=== PATIENT | male | born 1975 | race African-American/Black ===

== ENCOUNTER → 2017-03-05 | Outpatient (CLI) | payer OTHER ==
[2017-03-05 08:08] LABS: ABSOLUTE BASOPHILS # (AUTO) 0.1 10^3/uL (0.0-0.2); ABSOLUTE EOSINOPHILS # (AUTO) 0.2 10^3/uL (0.0-0.6); ABSOLUTE MONOCYTES (AUTO) 0.7 10^3/uL (0.1-1.4); ABSOLUTE NEUT (AUTO) 4.1 10^3/uL (1.7-8.2); BASOPHILS % (AUTO) 0.7 % (0-2); EOSINOPHILS % (AUTO) 2.6 % (0-6); HEMATOCRIT 39.8 % (37.9-51.0); HEMOGLOBIN 13.5 g/dL (13.5-17.0); HGB HCT DIFFERENCE 0.7; LYMPHOCYTES % (AUTO) 37.5 % (13-45); MEAN CORPUSCULAR HEMOGLOBIN 26.8 pg (27.0-33.4); MEAN CORPUSCULAR VOLUME 79 fl (80-97); MONOCYTES % (AUTO) 8.4 % (3-13); RED BLOOD COUNT 5.04 10^6/uL (4.35-5.55); RED CELL DISTRIBUTION WIDTH 15.7 % (11.5-14.0); SEGMENTED NEUTROPHILS % (AUTO) 50.8 % (42-78); WHITE BLOOD COUNT 8.1 10^3/uL (4.0-10.5)
[2017-03-05 08:37] LABS: ALANINE AMINOTRANSFERASE 47 U/L (21-72); ALBUMIN 4.3 g/dL (3.5-5.0); ALKALINE PHOSPHATASE 58 U/L (38-126); ANION GAP 11 (5-19); ASPARTATE AMINO TRANSFERASE 33 U/L (17-59); BILIRUBIN,DIRECT 0.4 mg/dL (0.0-0.4); BILIRUBIN,TOTAL 0.5 mg/dL (0.2-1.3); BLOOD UREA NITROGEN 16 mg/dL (7-20); CALCIUM 9.7 mg/dL (8.4-10.2); CARBON DIOXIDE 21 mmol/L (22-30); CHLORIDE 107 mmol/L (98-107); CHOLESTEROL 164.63 mg/dL (0-200); CREATININE RESULT 1.07 mg/dL (0.52-1.25); Direct HDL 30 mg/dL (>40); GLUCOSE 117 mg/dL (75-110); POTASSIUM 4.5 mmol/L (3.6-5.0); SODIUM 139.3 mmol/L (137-145); TOTAL PROTEIN 6.9 g/dL (6.3-8.2); TRIGLYCERIDES 354 mg/dL (<150)
[2017-03-05 08:50] LABS: DIRECT LDL 72 mg/dL (<100)
[2017-03-05 08:51] LABS: VLDL CHOLESTEROL 70.8 mg/dL (10-31)
== END ==
LOC: OD 07:10
PROVIDERS: ATTEND Family Medicine Geriatric Medicine
DX: I10 Essential (primary) hypertension (principal); K21.9 Gastro-esophageal reflux disease without esophagitis; K85.90 Acute pancreatitis without necrosis or infection, unspecified; Z79.899 Other long term (current) drug therapy
CPT/HCPCS: 36415; 80053; 80061; 84443; 85025

== ENCOUNTER → 2017-04-02 | Outpatient (CLI) | payer OTHER ==
--- NOTE | 2017-04-02 11:34 | RADIOLOGY REPORT (SQ) ---
EXAM DESCRIPTION: LUMBAR SPINE COMPLETE COMPLETED DATE/TIME: 04/02/2017 11:13 am REASON FOR STUDY: LOW BACK PAIN M54.5 LOW BACK PAIN COMPARISON: 02/23/2011. NUMBER OF VIEWS: Five views including obliques. TECHNIQUE: AP, lateral, oblique, and sacral radiographic images acquired of the lumbar spine. LIMITATIONS: None. FINDINGS: MINERALIZATION: Normal. SEGMENTATION: Normal. No transitional anatomy. ALIGNMENT: Normal. VERTEBRAE: Maintained height. No fracture or worrisome bone lesion. DISCS: Preserved height. No significant osteophytes or end plate irregularity. POSTERIOR ELEMENTS: Pedicles and facets are intact. No pars defect or posterior arch defects. HARDWARE: None in the spine. PARASPINAL SOFT TISSUES: Normal. PELVIS: Intact as visualized. No fractures or worrisome bone lesions. SI joints intact. OTHER: No other significant finding. IMPRESSION: NORMAL 5 VIEW LUMBAR SPINE. TECHNICAL DOCUMENTATION: JOB ID: [id number] [employer]- All Rights Reserved
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
== END ==
LOC: OD 10:19
PROVIDERS: ATTEND Family Medicine Geriatric Medicine
DX: M54.5 Low back pain (principal)
CPT/HCPCS: 72110; 72220

== ENCOUNTER → 2017-10-19 | Outpatient (CLI) | payer OTHER | LOC: OD 08:24 | PROVIDERS: ATTEND Family Medicine Geriatric Medicine | DX: Z79.899 Other long term (current) drug therapy (principal); R73.9 Hyperglycemia, unspecified | CPT/HCPCS: 36415; 82947; 82950; 83036 ==

== ENCOUNTER 2018-04-21 12:39 | Inpatient (IN) | payer OTHER ==
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
[2018-04-21] MEDS ORDERED: CEFTRIAXONE 1 GM/D5W RTU 1 GM/50 ML RTUPB IV ONE (16:06)
[2018-04-21 16:18] LABS: ABSOLUTE BASOPHILS # (AUTO) 0.1 10^3/uL (0.0-0.2); ABSOLUTE EOSINOPHILS # (AUTO) 0.5 10^3/uL (0.0-0.6); ABSOLUTE LYMPHOCYTES (AUTO) 3.1 10^3/uL (0.5-4.7); ABSOLUTE NEUT (AUTO) 5.4 10^3/uL (1.7-8.2); BASOPHILS % (AUTO) 0.6 % (0-2); EOSINOPHILS % (AUTO) 4.9 % (0-6); HEMATOCRIT 39.7 % (37.9-51.0); HEMOGLOBIN 13.4 g/dL (13.5-17.0); LYMPHOCYTES % (AUTO) 30.8 % (13-45); MEAN CORPUSCULAR HEMOGLOBIN 26.3 pg (27.0-33.4); MEAN CORPUSCULAR HGB CONC 33.6 g/dL (32.0-36.0); MEAN CORPUSCULAR VOLUME 78 fl (80-97); MONOCYTES % (AUTO) 9.6 % (3-13); PLATELET COUNT 280 10^3/uL (150-450); RED BLOOD COUNT 5.07 10^6/uL (4.35-5.55); RED CELL DISTRIBUTION WIDTH 15.5 % (11.5-14.0); SEGMENTED NEUTROPHILS % (AUTO) 54.1 % (42-78); TOTAL CELLS COUNTED % (AUTO) 100 %; WHITE BLOOD COUNT 9.9 10^3/uL (4.0-10.5)
[2018-04-21 16:42] LABS: ALANINE AMINOTRANSFERASE 40 U/L (21-72); ALKALINE PHOSPHATASE 63 U/L (38-126); ANION GAP 13 (5-19); ASPARTATE AMINO TRANSFERASE 27 U/L (17-59); BILIRUBIN,DIRECT 0.2 mg/dL (0.0-0.4); BILIRUBIN,TOTAL 0.5 mg/dL (0.2-1.3); BLOOD UREA NITROGEN 12 mg/dL (7-20); CALCIUM 9.3 mg/dL (8.4-10.2); CARBON DIOXIDE 23 mmol/L (22-30); CHLORIDE 105 mmol/L (98-107); GLUCOSE 74 mg/dL (75-110); POTASSIUM 4.2 mmol/L (3.6-5.0); SODIUM 140.8 mmol/L (137-145); TOTAL PROTEIN 6.6 g/dL (6.3-8.2)
[2018-04-21] MEDS ORDERED: MORPHINE SULFATE 10 MG/ML INJ IV ONE (17:51)
[2018-04-21] MEDS ORDERED: ONDANSETRON HCL INJ/PF 4 MG/2 ML SDV IV ONE (17:51)
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
[2018-04-21] MEDS ORDERED: VANCOMYCIN HCL INJ 1000 MG VIAL IV ONE (18:14)
--- NOTE | 2018-04-21 18:17 | Operative Report ---
Operative Report DATE OF SURGERY: 04/21/18 PREOPERATIVE DIAGNOSIS: 1. History of alcohol abuse. 2. History of smoking abuse. 3. Infection of skin, toenails and soft tissue of the right foot POSTOPERATIVE DIAGNOSIS: Same OPERATION: Excisional debridement of skin, multiple toenails and washing of right foot SURGEON: TIM MONTEJO ANESTHESIA: Other - IV pain medication TISSUE REMOVED OR ALTERED: tissue, skin and toenails COMPLICATIONS: None ESTIMATED BLOOD LOSS: Minimal INTRAOPERATIVE FINDINGS: See below PROCEDURE: Serous drainage from the distal foot, exfoliating skin around all 5 toes, and overgrown toenails Summary: Right foot washed vigorously with Betadine scrub brushes. All loose devitalized skin, and redundant toenails debrided with scissors, tenotomy. The of the nonviable skin was removed, some loosely fastened skin left behind. The foot washed again with Betadine. All debridement performed with tenotomy scissors. There is no indication for deep debridement; Dressings applied including Xeroform, 4 x 4's and Kerlix. Patient tolerated procedure well.
[2018-04-21] MEDS ORDERED: ACETAMINOPHEN 325 MG TABLET PO PRN (19:15)
[2018-04-21] MEDS ORDERED: ONDANSETRON 4 MG TAB.RAPDIS PO PRN (19:15)
[2018-04-21] MEDS ORDERED: ONDANSETRON HCL INJ/PF 4 MG/2 ML SDV IV PRN (19:15)
[2018-04-21] MEDS ORDERED: CLOTRIMAZOLE 1% CREAM 15 GM TP PRN (19:32)
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
[2018-04-21] MEDS: TRAMADOL HCL 50 MG TABLET PO PRN (21:01)
--- NOTE | 2018-04-21 22:00 | EKG REPORT ---
SEVERITY:- NORMAL ECG - SINUS RHYTHM : Confirmed by: Edelmira Taylor MD 21-Apr-2018 21:59:43
[2018-04-22] MEDS: AMPICILLIN SODIUM/SULBACTAM NA 3 GM in NORMAL SALINE 100 ML IV SCH ×5 (00:02→23:56)
[2018-04-22] MEDS: TRAMADOL HCL 50 MG TABLET PO PRN ×4 (03:51→22:40)
[2018-04-22] MEDS: LANSOPRAZOLE 30 MG TAB.RAP.DR PO SCH (06:07)
[2018-04-22 06:42] LABS: HEMATOCRIT 41.2 % (37.9-51.0); HEMOGLOBIN 13.8 g/dL (13.5-17.0); MEAN CORPUSCULAR HEMOGLOBIN 26.3 pg (27.0-33.4); MEAN CORPUSCULAR HGB CONC 33.4 g/dL (32.0-36.0); MEAN CORPUSCULAR VOLUME 79 fl (80-97); PLATELET COUNT 283 10^3/uL (150-450); RED BLOOD COUNT 5.23 10^6/uL (4.35-5.55); RED CELL DISTRIBUTION WIDTH 15.4 % (11.5-14.0); WHITE BLOOD COUNT 8.5 10^3/uL (4.0-10.5)
[2018-04-22 07:16] LABS: ANION GAP 10 (5-19); BLOOD UREA NITROGEN 14 mg/dL (7-20); CALCIUM 9.5 mg/dL (8.4-10.2); CARBON DIOXIDE 25 mmol/L (22-30); CHLORIDE 106 mmol/L (98-107); GLUCOSE 92 mg/dL (75-110); POTASSIUM 4.9 mmol/L (3.6-5.0); SODIUM 140.7 mmol/L (137-145)
--- NOTE | 2018-04-22 08:38 | PDOC PROGRESS REPORT ---
Subjective Progress Note for:: 04/22/18 Subjective:: Still complaining of right foot pain Reason For Visit: CELLULITIS RIGHT FOOT Physical Exam Vital Signs: Temp Pulse Resp BP Pulse Ox 98.1 F 72 16 144/81 H 99 04/21/18 23:47 04/21/18 23:47 04/21/18 23:47 04/21/18 23:47 04/21/18 23:47 Intake & Output 04/21/18 04/22/18 04/23/18 06:59 06:59 06:59 Intake Total 450 Balance 450 Weight 86.7 kg General appearance: PRESENT: no acute distress Extremities exam: PRESENT: other - Dressing removed; right foot exposed; minimal residual nonviable skin left; cellulitis of the toes persist with a lot of serous drainage. Persisting swelling to the foot ; Foot rewrapped. Results Laboratory Results: 04/22/18 05:52 04/22/18 05:52 04/22/18 04/22/18 05:52 05:52 WBC 8.5 RBC 5.23 Hgb 13.8 Hct 41.2 MCV 79 L MCH 26.3 L MCHC 33.4 RDW 15.4 H Plt Count 283 Sodium 140.7 Potassium 4.9 Chloride 106 Carbon Dioxide 25 Anion Gap 10 BUN 14 Creatinine 1.06 Est GFR ( Amer) > 60 Est GFR (Non-Af Amer) > 60 Glucose 92 Calcium 9.5 Impressions: Foot X-Ray 04/21/18 13:27 IMPRESSION: No acute osseous abnormality. Foreign body. Assessment & Plan - Diagnosis (1) Cellulitis of foot, right Is this a current diagnosis for this admission?: Yes Plan: Impression: Status post debridement skin and nails right foot in patient with neglected cellulitis; clinically improved but cellulitis and edema not resolved. Recommendations: 1. Continue dressing changes, intravenous antibiotics and leg elevation. 2. We will follow with you
[2018-04-22] MEDS: ENOXAPARIN SODIUM INJ 40 MG/0.4 ML DISP.SYRIN SUBCUT SCH (09:45)
[2018-04-22] MEDS: HYDROCORTISONE 1% CREAM 28.35 GM TP SCH (09:46)
--- NOTE | 2018-04-22 13:02 | PDOC PROGRESS REPORT ---
Subjective Progress Note for:: 04/22/18 Subjective:: 43-year-old male admitted with right lower extremity wound status post debridement yesterday started on IV antibiotics patient is complaining of pain scale of 4 x 10 is on, dull right now he wants to try stronger pain medication. Comfortably in the bed denies any other complaints Reason For Visit: CELLULITIS RIGHT FOOT Physical Exam Vital Signs: Temp Pulse Resp BP Pulse Ox 98.4 F 66 16 140/82 H 100 04/22/18 08:10 04/22/18 08:10 04/22/18 08:10 04/22/18 08:10 04/22/18 08:10 Intake & Output 04/21/18 04/22/18 04/23/18 06:59 06:59 06:59 Intake Total 450 100 Balance 450 100 Weight 86.7 kg General appearance: PRESENT: no acute distress Head exam: PRESENT: atraumatic, normocephalic Eye exam: PRESENT: conjunctiva pink, EOMI, PERRLA. ABSENT: scleral icterus Ear exam: PRESENT: normal external ear exam Neck exam: ABSENT: carotid bruit, JVD, lymphadenopathy, thyromegaly Respiratory exam: PRESENT: clear to auscultation jackie. ABSENT: rales, rhonchi, wheezes Cardiovascular exam: PRESENT: RRR. ABSENT: diastolic murmur, rubs, systolic murmur Pulses: PRESENT: normal carotid pulses GI/Abdominal exam: PRESENT: normal bowel sounds, soft. ABSENT: distended, guarding, mass, organolmegaly, rebound, tenderness Extremities exam: PRESENT: full ROM, other - Complaints of right foot pain 4 x 10. ABSENT: calf tenderness, clubbing, pedal edema Neurological exam: PRESENT: alert, awake, oriented to person, oriented to place , oriented to time, oriented to situation, CN II-XII grossly intact. ABSENT: motor sensory deficit Psychiatric exam: PRESENT: appropriate affect, normal mood. ABSENT: homicidal ideation, suicidal ideation Skin exam: PRESENT: other - Patient has rash on the hands and around the elbows and he is seeing these things are getting worse over a period of time he said he was never diagnosed with psoriasis before. Tinea pedis of left foot Results Laboratory Results: 04/22/18 05:52 04/22/18 05:52 04/22/18 04/22/18 05:52 05:52 WBC 8.5 RBC 5.23 Hgb 13.8 Hct 41.2 MCV 79 L MCH 26.3 L MCHC 33.4 RDW 15.4 H Plt Count 283 Sodium 140.7 Potassium 4.9 Chloride 106 Carbon Dioxide 25 Anion Gap 10 BUN 14 Creatinine 1.06 Est GFR ( Amer) > 60 Est GFR (Non-Af Amer) > 60 Glucose 92 Calcium 9.5 Impressions: Foot X-Ray 04/21/18 13:27 IMPRESSION: No acute osseous abnormality. Foreign body. Assessment & Plan - Diagnosis (1) Cellulitis of foot, right Is this a current diagnosis for this admission?: Yes Plan: 04/22/2018-patient has cellulitis of right lower extremity with erythema swelling and drainage status post debridement by Dr. Roque. Patient is on IV vancomycin and on IV Unasyn. Cultures are pending (2) GERD (gastroesophageal reflux disease) Qualifiers: Esophagitis presence: without esophagitis Qualified Code(s): K21.9 - Gastro -esophageal reflux disease without esophagitis Is this a current diagnosis for this admission?: Yes Plan: 04/22/2018-patient is not complaining of any epigastric pain or acid reflux problems he is on GI prophylaxis (3) HTN (hypertension) Qualifiers: Hypertension type: essential hypertension Qualified Code(s): I10 - Essential (primary) hypertension Is this a current diagnosis for this admission?: Yes Plan: 04/22/2018 patient vital signs are stable his blood pressure is within normal range (4) Tinea pedis Qualifiers: Laterality: bilateral Qualified Code(s): B35.3 - Tinea pedis Is this a current diagnosis for this admission?: Yes Plan: 04/22/2018 patient has tinea pedis in both feet and he is getting clotrimazole cream - Time Time Spent with patient: 15-24 minutes Medications reviewed and adjusted accordingly: Yes Anticipated discharge: Home
[2018-04-23] MEDS: LANSOPRAZOLE 30 MG TAB.RAP.DR PO SCH (05:46)
[2018-04-23] MEDS: AMPICILLIN SODIUM/SULBACTAM NA 3 GM in NORMAL SALINE 100 ML IV SCH ×3 (05:46→17:31)
[2018-04-23] MEDS: TRAMADOL HCL 50 MG TABLET PO PRN ×2 (08:37→17:31)
[2018-04-23] MEDS: BACITRACIN ZINC OINTMENT 15 GM TP SCH (10:43)
[2018-04-23] MEDS: HYDROCORTISONE 1% CREAM 28.35 GM TP SCH (10:43)
[2018-04-23] MEDS: ENOXAPARIN SODIUM INJ 40 MG/0.4 ML DISP.SYRIN SUBCUT SCH (10:43)
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
[2018-04-23] MEDS ORDERED: ONDANSETRON 4 MG TAB.RAPDIS PO PRN (13:00)
[2018-04-23] MEDS ORDERED: ONDANSETRON HCL INJ/PF 4 MG/2 ML SDV IV PRN (13:00)
--- NOTE | 2018-04-23 14:19 | PDOC PROGRESS REPORT ---
Subjective Progress Note for:: 04/23/18 Subjective:: Patient is comfortably in the bed not in distress, denies any complaints. Reason For Visit: CELLULITIS RIGHT FOOT Physical Exam Vital Signs: Temp Pulse Resp BP Pulse Ox 98.7 F 72 16 141/76 H 100 04/23/18 07:46 04/23/18 07:46 04/23/18 07:46 04/23/18 07:46 04/23/18 07:46 Intake & Output 04/22/18 04/23/18 04/24/18 06:59 06:59 06:59 Intake Total 450 2517 559 Balance 450 2517 559 Weight 86.7 kg 84.1 kg General appearance: PRESENT: no acute distress Head exam: PRESENT: atraumatic Eye exam: PRESENT: PERRLA. ABSENT: scleral icterus Neck exam: ABSENT: carotid bruit, JVD, lymphadenopathy, thyromegaly Respiratory exam: PRESENT: clear to auscultation jackie. ABSENT: rales, rhonchi, wheezes Cardiovascular exam: PRESENT: RRR. ABSENT: diastolic murmur, rubs, systolic murmur GI/Abdominal exam: PRESENT: normal bowel sounds, soft. ABSENT: distended, guarding, mass, organolmegaly, rebound, tenderness Neurological exam: PRESENT: alert, awake, oriented to person, oriented to place , oriented to time, oriented to situation, CN II-XII grossly intact. ABSENT: motor sensory deficit Psychiatric exam: PRESENT: appropriate affect, normal mood. ABSENT: homicidal ideation, suicidal ideation Results Laboratory Results: 04/22/18 05:52 04/22/18 05:52 Impressions: Foot X-Ray 04/21/18 13:27 IMPRESSION: No acute osseous abnormality. Foreign body. Assessment & Plan - Diagnosis (1) Cellulitis of foot, right Is this a current diagnosis for this admission?: Yes Plan: 04/22/2018-patient has cellulitis of right lower extremity with erythema swelling and drainage status post debridement by Dr. Roque. Patient is on IV vancomycin and on IV Unasyn. Cultures are pending 04/23/2018-she has right lower extremity cellulitis status post debridement patient is on IV Unasyn blood cultures are negative so far WBC is normal. (2) GERD (gastroesophageal reflux disease) Qualifiers: Esophagitis presence: without esophagitis Qualified Code(s): K21.9 - Gastro -esophageal reflux disease without esophagitis Is this a current diagnosis for this admission?: Yes (3) HTN (hypertension) Qualifiers: Hypertension type: essential hypertension Qualified Code(s): I10 - Essential (primary) hypertension Is this a current diagnosis for this admission?: Yes Plan: 04/22/2018 patient vital signs are stable his blood pressure is within normal range 04/23/2018 patient vital signs are stable blood pressure is 144/81 pulse rate in the 80s. (4) Tinea pedis Qualifiers: Laterality: bilateral Qualified Code(s): B35.3 - Tinea pedis Is this a current diagnosis for this admission?: Yes Plan: 04/22/2018 patient has tinea pedis in both feet and he is getting clotrimazole cream 04/23/2018-and has tinea pedis on his both toenails he is getting clotrimazole cream. - Time Time Spent with patient: Less than 15 minutes Anticipated discharge: Home
[2018-04-24] MEDS: TRAMADOL HCL 50 MG TABLET PO PRN ×2 (00:18→07:38)
[2018-04-24] MEDS: AMPICILLIN SODIUM/SULBACTAM NA 3 GM in NORMAL SALINE 100 ML IV SCH ×3 (00:18→11:54)
[2018-04-24] MEDS ORDERED: LANSOPRAZOLE 30 MG TAB.RAP.DR PO SCH (06:00)
[2018-04-24] MEDS: HYDROCORTISONE 1% CREAM 28.35 GM TP SCH (09:01)
[2018-04-24] MEDS: BACITRACIN ZINC OINTMENT 15 GM TP SCH (09:01)
[2018-04-24] MEDS: ENOXAPARIN SODIUM INJ 40 MG/0.4 ML DISP.SYRIN SUBCUT SCH (09:01)
[2018-04-24 12:45] VITALS: BP 137/78
--- NOTE | 2018-04-24 12:50 | PDOC DISCHARGE SUMMARY ---
General - Admit/Disc Date/PCP Admission Date/Primary Care Provider: 04/21/18 19:12 MICHAEL DIAZ MD Discharge Date: 04/24/18 - Discharge Diagnosis (1) Cellulitis of foot, right Is this a current diagnosis for this admission?: Yes Summary: Presented on 04/21/20 with cellulitis of right lower extremity with erythema, swelling, and drainage. On 04/22/2018, status post debridement by Dr. Roque. Started on IV vancomycin and IV Unasyn. Cultures were negative at 48 hours. WBC normal and vitals stable. Feeling well on day of discharge. Plan for discharge to home with 5 days course of Augmentin 825-125mg BID * 5 additional days. Advised to keep foot clean and dry. Should follow up at [facility] in 1 week. (2) Tinea pedis Is this a current diagnosis for this admission?: Yes Summary: On both feel bilaterally. Improved. Script given for clotrmazole cream for athlete's foot. (3) GERD (gastroesophageal reflux disease) Is this a current diagnosis for this admission?: Yes Summary: Stable at discharge. (4) HTN (hypertension) Is this a current diagnosis for this admission?: Yes Summary: BPs ranging in 130-140 systolic. Should have better BP controll, follow up with PCP/outpatient care. - Additional Information Resuscitation Status: Full Code Discharge Diet: Diabetic Discharge Activity: Activity As Tolerated Prescriptions: Amox Tr/Potassium Clavulanate [Augmentin 875-125 mg Tablet] 1 tab PO BID 5 Days #10 tablet Clotrimazole [Athletic Foot Cream] 1 applic TP DAILY #1 cream..g. Home Medications: Esomeprazole Mag Trihydrate [Nexium] 40 mg PO WSUPPER 04/22/18 Tramadol HCl [Ultram 50 mg Tablet] 50 mg PO Q6HP PRN 04/22/18 Amox Tr/Potassium Clavulanate [Augmentin 875-125 mg Tablet] 1 tab PO BID 5 Days #10 tablet 04/24/18 Clotrimazole [Athletic Foot Cream] 1 applic TP DAILY #1 cream..g. 04/24/18 History of Present Illness Patient complains of: Right foot pain and drainage. History of Present Illness: KEENA FARRIS is a 43 year old male with history of 2 months of right foot problems. Approximately 2 months ago his foot was itchy but there was no erythema. After 1 month he began to exhibit erythema. Around 2 weeks ago there is erythema with pain. Approximately 1 week ago it began to drain fluid from cracks in the skin. Admitted to [facility] for RLE cellulitis. Physical Exam Vital Signs: Temp Pulse Resp BP Pulse Ox 97.8 F 67 17 144/81 H 100 04/24/18 12:07 04/24/18 12:07 04/24/18 12:07 04/24/18 12:07 04/24/18 12:07 Intake & Output 04/23/18 04/24/18 04/25/18 06:59 06:59 06:59 Intake Total 2517 2243 100 Balance 2517 2243 100 Weight 84.1 kg 83.9 kg General appearance: PRESENT: no acute distress, cooperative, well-developed, well-nourished Mouth exam: PRESENT: moist Respiratory exam: PRESENT: unlabored Cardiovascular exam: PRESENT: +S1, +S2. ABSENT: tachycardia GI/Abdominal exam: PRESENT: soft. ABSENT: tenderness Extremities exam: PRESENT: other - Right foot dressing changed today; less erythema, decreased/little drainage. Ambulatory Musculoskeletal exam: PRESENT: ambulatory Neurological exam: PRESENT: alert, awake, CN II-XII grossly intact Psychiatric exam: PRESENT: appropriate affect Skin exam: PRESENT: dry, intact Results Laboratory Results: 04/22/18 05:52 04/22/18 05:52 Impressions: Foot X-Ray 04/21/18 13:27 IMPRESSION: No acute osseous abnormality. Foreign body. Qualifiers - * PATIENT BEING DISCHARGED WITH ANY OF THE FOLLOWING DIAGNOSIS: No Plan Time Spent: Less than 30 Minutes
== END 2018-04-24 13:20 | disposition home or self-care (01) | DRG 603 ==
LOC: ER 12:39 → EH 19:12 → 5 19:59
PROVIDERS: ADMIT Internal Medicine; ATTEND Internal Medicine
PROC: 0HDMXZZ Extraction of Right Foot Skin, External Approach (ICD-10-PCS; principal; 2018-04-21)
PROC: 0HBRXZZ Excision of Toe Nail, External Approach (ICD-10-PCS; 2018-04-21)
PROC: 0HBRXZZ Excision of Toe Nail, External Approach (ICD-10-PCS; 2018-04-21)
PROC: 0HBRXZZ Excision of Toe Nail, External Approach (ICD-10-PCS; 2018-04-21)
PROC: 0HBRXZZ Excision of Toe Nail, External Approach (ICD-10-PCS; 2018-04-21)
PROC: 0HBRXZZ Excision of Toe Nail, External Approach (ICD-10-PCS; 2018-04-21)
DX: L03.115 Cellulitis of right lower limb (principal); T69.021A Immersion foot, right foot, initial encounter; B35.3 Tinea pedis; K21.9 Gastro-esophageal reflux disease without esophagitis; I10 Essential (primary) hypertension; F17.210 Nicotine dependence, cigarettes, uncomplicated; G89.29 Other chronic pain; M54.5 Low back pain; R23.8 Other skin changes; F10.10 Alcohol abuse, uncomplicated; Z79.899 Other long term (current) drug therapy; Z90.49 Acquired absence of other specified parts of digestive tract; Z83.3 Family history of diabetes mellitus; Z82.49 Family history of ischemic heart disease and other diseases of the circulatory system; Z80.3 Family history of malignant neoplasm of breast
CPT/HCPCS: 36415; 80048; 80053; 83036; 83605; 85025; 85027; 87040; 93005; 93010; 96365; 96367; 96375; 99285; J0295; J0696; J1650; J2270; J2405; J3370; J3490

== ENCOUNTER → 2018-06-06 | Outpatient (CLI) | payer OTHER ==
[2018-06-06 08:07] LABS: ABSOLUTE BASOPHILS # (AUTO) 0.1 10^3/uL (0.0-0.2); ABSOLUTE EOSINOPHILS # (AUTO) 0.5 10^3/uL (0.0-0.6); ABSOLUTE LYMPHOCYTES (AUTO) 2.6 10^3/uL (0.5-4.7); ABSOLUTE MONOCYTES (AUTO) 0.8 10^3/uL (0.1-1.4); ABSOLUTE NEUT (AUTO) 4.6 10^3/uL (1.7-8.2); BASOPHILS % (AUTO) 0.7 % (0-2); EOSINOPHILS % (AUTO) 5.5 % (0-6); HEMOGLOBIN 15.2 g/dL (13.5-17.0); LYMPHOCYTES % (AUTO) 30.4 % (13-45); MEAN CORPUSCULAR HEMOGLOBIN 26.2 pg (27.0-33.4); MEAN CORPUSCULAR HGB CONC 33.1 g/dL (32.0-36.0); MEAN CORPUSCULAR VOLUME 79 fl (80-97); PLATELET COUNT 316 10^3/uL (150-450); RED BLOOD COUNT 5.82 10^6/uL (4.35-5.55); RED CELL DISTRIBUTION WIDTH 16.3 % (11.5-14.0); SEGMENTED NEUTROPHILS % (AUTO) 54.4 % (42-78); TOTAL CELLS COUNTED % (AUTO) 100 %; WHITE BLOOD COUNT 8.5 10^3/uL (4.0-10.5)
[2018-06-06 08:30] LABS: ANION GAP 10 (5-19); BLOOD UREA NITROGEN 12 mg/dL (7-20); CALCIUM 9.9 mg/dL (8.4-10.2); CARBON DIOXIDE 23 mmol/L (22-30); CHLORIDE 105 mmol/L (98-107); CHOLESTEROL 205.94 mg/dL (0-200); GLUCOSE 102 mg/dL (75-110); POTASSIUM 4.3 mmol/L (3.6-5.0); SODIUM 137.9 mmol/L (137-145); TRIGLYCERIDES 222 mg/dL (<150)
[2018-06-06 08:41] LABS: DIRECT LDL 120 mg/dL (<100)
[2018-06-06 08:44] LABS: VLDL CHOLESTEROL 44.4 mg/dL (10-31)
== END ==
LOC: OD 07:30
PROVIDERS: ATTEND Family Medicine Geriatric Medicine
DX: E78.1 Pure hyperglyceridemia (principal); I10 Essential (primary) hypertension; Z79.899 Other long term (current) drug therapy
CPT/HCPCS: 36415; 80048; 80061; 83036; 85025

== ENCOUNTER → 2018-10-02 | Outpatient (CLI) | payer OTHER ==
[2018-10-03 08:43] LABS: ALANINE AMINOTRANSFERASE 59 U/L (21-72); TRIGLYCERIDES 141 mg/dL (<150)
[2018-10-03 08:54] LABS: DIRECT LDL 121 mg/dL (<100)
[2018-10-06 15:36] LABS: HGB A 98.1 % (96.4-98.8); HGB A2 1.9 % (1.8-3.2); HGB SOLUBILITY RESULT Negative (Negative)
== END ==
LOC: OD 11:48
PROVIDERS: ATTEND Family Medicine Geriatric Medicine
DX: E78.2 Mixed hyperlipidemia (principal); R71.8 Other abnormality of red blood cells; Z79.899 Other long term (current) drug therapy
CPT/HCPCS: 36415; 80061; 83020; 84460

== ENCOUNTER 2018-10-09 11:02 | Emergency (ER) | payer OTHER ==
[2018-10-09 11:09] VITALS: BP 146/83
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
== END 2018-10-09 13:42 | disposition home or self-care (01) ==
LOC: ER 11:02
DX: R51 Headache (principal); R42 Dizziness and giddiness
CPT/HCPCS: 99283

== ENCOUNTER 2018-10-11 11:20 | Emergency (ER) | payer OTHER ==
[2018-10-11] MEDS ORDERED: DIAZEPAM 5 MG TABLET PO ONE (11:46)
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
--- NOTE | 2018-10-11 12:11 | RADIOLOGY REPORT (SQ) ---
EXAM DESCRIPTION: CT HEAD WITHOUT COMPLETED DATE/TIME: 10/11/2018 11:57 am REASON FOR STUDY: HEADACHE, DIZZINESS COMPARISON: None. TECHNIQUE: Axial images acquired through the brain without intravenous contrast. Images reviewed wi th bone, brain and subdural windows. Additional sagittal and coronal reconstructions were generated. Images stored on PACS. All CT scanners at this facility use dose modulation, iterative reconstruction, and/or weight based d osing when appropriate to reduce radiation dose to as low as reasonably achievable (ALARA). [facility]: Dose Right [facility]: CareDose [facility]: Dose Right [facility]: Teradose 4D [facility]: Smart Technologies RADIATION DOSE: CT Rad equipment meets quality standard of care and radiation dose reduction techniq ues were employed. CTDIvol: 53.2 mGy. DLP: 1150 mGy-cm. mGy. LIMITATIONS: None. FINDINGS: VENTRICLES: Normal size and contour. CEREBRUM: Roughly ovoid low density lesion in the right frontal lobe. This may measure up to 5 cm ma ximal dimension. There is regional low density, presumed very lesional edema. Mild mass effect on t he frontal horn of the right lateral ventricle. Just under 1 cm right to left shift. CEREBELLUM: No masses. No hemorrhage. No alteration of density. No evidence for acute infarction. EXTRAAXIAL SPACES: No fluid collections. No masses. ORBITS AND GLOBE: No intra- or extraconal masses. Normal contour of globe without masses. CALVARIUM: No fracture. PARANASAL SINUSES: No fluid or mucosal thickening. SOFT TISSUES: No mass or hematoma. OTHER: No other significant finding. IMPRESSION: 1. Low density mass in the right frontal lobe with regional edema and mass effect on the right ventri chaz, slight shift. This should be further evaluated with MRI without and with contrast. EVIDENCE OF ACUTE STROKE: NO. COMMENT: Quality ID # [id number]: Final reports with documentation of one or more dose reduction techniques (e.g., Automated exposure control, adjustment of the mA and/or kV according to patient size, use of iterative reconstruction technique) TECHNICAL DOCUMENTATION: JOB ID: [id number] [employer]- All Rights Reserved Reading location - IP/workstation name: [email or web address]
[2018-10-11 13:24] LABS: ABSOLUTE BASOPHILS # (AUTO) 0.1 10^3/uL (0.0-0.2); ABSOLUTE LYMPHOCYTES (AUTO) 1.8 10^3/uL (0.5-4.7); ABSOLUTE MONOCYTES (AUTO) 0.5 10^3/uL (0.1-1.4); ABSOLUTE NEUT (AUTO) 4.5 10^3/uL (1.7-8.2); EOSINOPHILS % (AUTO) 0.6 % (0-6); HEMATOCRIT 50.2 % (37.9-51.0); HEMOGLOBIN 16.3 g/dL (13.5-17.0); LYMPHOCYTES % (AUTO) 25.6 % (13-45); MEAN CORPUSCULAR HEMOGLOBIN 25.9 pg (27.0-33.4); MEAN CORPUSCULAR HGB CONC 32.5 g/dL (32.0-36.0); MEAN CORPUSCULAR VOLUME 80 fl (80-97); PLATELET COUNT 322 10^3/uL (150-450); RED BLOOD COUNT 6.32 10^6/uL (4.35-5.55); RED CELL DISTRIBUTION WIDTH 15.8 % (11.5-14.0); SEGMENTED NEUTROPHILS % (AUTO) 65.8 % (42-78); TOTAL CELLS COUNTED % (AUTO) 100 %; WHITE BLOOD COUNT 6.9 10^3/uL (4.0-10.5)
[2018-10-11] MEDS ORDERED: LEVETIRACETAM 1000 MG/NACL-ISO 1,000 MG/100 ML RTUPB IV ONE (13:34)
[2018-10-11 13:36] LABS: INTERNATIONAL RATION (INR) 0.91; PARTIAL THROMBOPLASTIN TIME 29.1 SEC (23.5-35.8); PROTHROMBIN TIME 12.7 SEC (11.4-15.4)
[2018-10-11 13:46] LABS: ALANINE AMINOTRANSFERASE 62 U/L (21-72); ALBUMIN 4.5 g/dL (3.5-5.0); ALKALINE PHOSPHATASE 60 U/L (38-126); ANION GAP 10 (5-19); ASPARTATE AMINO TRANSFERASE 31 U/L (17-59); BILIRUBIN,DIRECT 0.2 mg/dL (0.0-0.4); BILIRUBIN,TOTAL 0.4 mg/dL (0.2-1.3); BLOOD UREA NITROGEN 13 mg/dL (7-20); CALCIUM 10.5 mg/dL (8.4-10.2); CARBON DIOXIDE 26 mmol/L (22-30); CHLORIDE 104 mmol/L (98-107); GLUCOSE 96 mg/dL (75-110); POTASSIUM 4.6 mmol/L (3.6-5.0); SODIUM 140.3 mmol/L (137-145); TOTAL PROTEIN 7.5 g/dL (6.3-8.2)
[2018-10-11] MEDS ORDERED: ONDANSETRON HCL INJ/PF 4 MG/2 ML SDV IV ONE ×2 (14:08→17:25)
[2018-10-11] MEDS ORDERED: MORPHINE SULFATE 10 MG/ML INJ IV ONE (15:10)
[2018-10-11] MEDS ORDERED: HYDROMORPHONE HCL INJ/PF 2 MG/ML AMPULE IV ONE (17:08)
[2018-10-11 18:36] VITALS: BP 138/89
== END 2018-10-11 18:15 | disposition short-term general hospital (02) ==
LOC: ER 11:20
DX: G93.89 Other specified disorders of brain (principal); R51 Headache; R42 Dizziness and giddiness
CPT/HCPCS: 96376; 99285; 96375; 96365; 36415; 85025; 85610; 85730; 80053; 70450; J2270; J1170; J2405; J1953

== ENCOUNTER 2018-11-18 15:52 | Emergency (ER) | payer OTHER ==
[2018-11-18] MEDS ORDERED: ACETAMINOPHEN 325 MG TABLET PO ONE (16:00)
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
[2018-11-18] MEDS: NORMAL SALINE 1000 ML 1,000 ML IV PRN ×2 (16:41→20:28)
--- NOTE | 2018-11-18 16:57 | RADIOLOGY REPORT (SQ) ---
EXAM DESCRIPTION: CHEST 2 VIEWS COMPLETED DATE/TIME: 11/18/2018 4:49 pm REASON FOR STUDY: fever COMPARISON: 11/24/2014 EXAM PARAMETERS: NUMBER OF VIEWS: two views TECHNIQUE: Digital Frontal and Lateral radiographic views of the chest acquired. RADIATION DOSE: NA LIMITATIONS: none FINDINGS: LUNGS AND PLEURA: No opacities, masses or pneumothorax. No pleural effusion. MEDIASTINUM AND HILAR STRUCTURES: No masses or contour abnormalities. HEART AND VASCULAR STRUCTURES: Heart normal size. No evidence for failure. BONES: No acute findings. HARDWARE: None in the chest. OTHER: No other significant finding. IMPRESSION: NO ACUTE RADIOGRAPHIC FINDING IN THE CHEST. TECHNICAL DOCUMENTATION: JOB ID: [id number] [employer]- All Rights Reserved Reading location - IP/workstation name: [email or web address]
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
[2018-11-18 17:16] LABS: HEMATOCRIT 25.8 % (37.9-51.0); HEMOGLOBIN 8.7 g/dL (13.5-17.0); MEAN CORPUSCULAR HEMOGLOBIN 26.2 pg (27.0-33.4); MEAN CORPUSCULAR HGB CONC 33.8 g/dL (32.0-36.0); MEAN CORPUSCULAR VOLUME 78 fl (80-97); PLATELET COUNT 316 10^3/uL (150-450); RED BLOOD COUNT 3.33 10^6/uL (4.35-5.55); RED CELL DISTRIBUTION WIDTH 15.5 % (11.5-14.0); WHITE BLOOD COUNT 13.2 10^3/uL (4.0-10.5)
[2018-11-18 17:17] LABS: APPEARANCE,URINE SLIGHTLY-CLOUDY; BILIRUBIN,URINE NEGATIVE (NEGATIVE); GLUCOSE, URINE NEGATIVE (NEGATIVE); KETONES,URINE NEGATIVE (NEGATIVE); LEUKOCYTE ESTERASE,URINE NEGATIVE (NEGATIVE); NITRITE,URINE NEGATIVE (NEGATIVE); PROTEIN,URINE 100 mg/dL (NEGATIVE); URINE SPECIFIC GRAVITY 1.023
[2018-11-18 17:18] LABS: COLOR,URINE DARK YELLOW
[2018-11-18] MEDS ORDERED: VANCOMYCIN HCL INJ 1000 MG VIAL IV ONE (17:26)
[2018-11-18] MEDS ORDERED: PIPERACILLIN/TAZOBACTAM 3.375 GM VIAL IV ONE (17:26)
[2018-11-18 17:30] LABS: ALANINE AMINOTRANSFERASE 291 U/L (21-72); ALBUMIN 2.4 g/dL (3.5-5.0); ALKALINE PHOSPHATASE 151 U/L (38-126); ANION GAP 11 (5-19); ASPARTATE AMINO TRANSFERASE 262 U/L (17-59); BILIRUBIN,DIRECT 0.3 mg/dL (0.0-0.4); BILIRUBIN,TOTAL 0.7 mg/dL (0.2-1.3); BLOOD UREA NITROGEN 11 mg/dL (7-20); CALCIUM 8.4 mg/dL (8.4-10.2); CARBON DIOXIDE 27 mmol/L (22-30); CHLORIDE 93 mmol/L (98-107); GLUCOSE 113 mg/dL (75-110); POTASSIUM 4.6 mmol/L (3.6-5.0); TOTAL PROTEIN 5.4 g/dL (6.3-8.2)
[2018-11-18 17:37] LABS: ABSOLUTE MONOCYTES # (MANUAL) 0.7 10^3/uL (0.1-1.4); BAND NEUTROPHILS % (MANUAL) 6 % (3-5); BASOPHILS % (MANUAL) 0 % (0-2); EOSINOPHILS % (MANUAL) 0 % (0-6); LYMPHOCYTES % (MANUAL) 22 % (13-45); METAMYELOCYTES % (MANUAL) 1 % (0); MONOCYTES % (MANUAL) 5 % (3-13); NUCLEATED RED BLOOD CELLS 4 /100 WBC (0); SEGMENTED NEUTROPHILS % (MAN) 65 % (42-78); TOTAL CELLS COUNTED 100
[2018-11-18 17:38] LABS: ANISOCYTOSIS SLIGHT; HYPOCHROMASIA SLIGHT; PLATELET COMMENT ADEQUATE; POIKILOCYTOSIS 2+; TARGET CELLS 2+; TOXIC GRANULATION 1+
--- NOTE | 2018-11-18 18:54 | RADIOLOGY REPORT (SQ) ---
EXAM DESCRIPTION: CT ABD/PELVIS WITH IV ORAL COMPLETED DATE/TIME: 11/18/2018 6:30 pm REASON FOR STUDY: abdominal pain COMPARISON: 11/24/2014 TECHNIQUE: CT scan of the abdomen and pelvis performed using helical scanning technique with dynamic intravenous contrast injection. Oral contrast. Images reviewed with lung, soft tissue, and bone win dows. Reconstructed coronal and sagittal MPR images reviewed. Delayed images for evaluation of the ur inary system also acquired. All images stored on PACS. All CT scanners at this facility use dose modulation, iterative reconstruction, and/or weight based d osing when appropriate to reduce radiation dose to as low as reasonably achievable (ALARA). [facility]: Dose Right [facility]: CareDose [facility]: Dose Right [facility]: Teradose 4D [facility]: [employer] CONTRAST TYPE AND DOSE: contrast/concentration: Isovue 350.00 mg/ml; Total Contrast Delivered: 78.0 ml; Total Saline Delivered: 65.9 ml RENAL FUNCTION: Not recorded. Refer to medical imaging technologist's notes. RADIATION DOSE: CT Rad equipment meets quality standard of care and radiation dose reduction techniq ues were employed. CTDIvol: 5.3 - 7.4 mGy. DLP: 679 mGy-cm.. LIMITATIONS: None. FINDINGS: LOWER CHEST: No significant findings. No nodules or infiltrates. LIVER: Normal size. No masses. No dilated ducts. SPLEEN: Normal size. No focal lesions. PANCREAS: There are calcifications in the head of the pancreas. No evidence of acute pancreatitis. GALLBLADDER: No identified stones by CT criteria. No inflammatory changes to suggest cholecystitis. ADRENAL GLANDS: No significant masses or asymmetry. RIGHT KIDNEY AND URETER: No solid masses. No significant calcifications. No hydronephrosis or hyd roureter. LEFT KIDNEY AND URETER: No solid masses. No significant calcifications. No hydronephrosis or hydr oureter. AORTA AND VESSELS: No aneurysm. No dissection. Renal arteries, SMA, celiac without stenosis. RETROPERITONEUM: No retroperitoneal adenopathy, hemorrhage or masses. BOWEL AND PERITONEAL CAVITY: By history there has been resection of some of the bowel. In the mid ab domen a right side of the abdomen there is what appears to represent fecalization in small bowel loop s. No definite bowel mass is seen. Fluid is seen posteriorly in the right side of the abdomen. Thi s extends down along the iliopsoas into the right side of the pelvis and with an into the top of the thigh on image 88. APPENDIX: Surgically absent. PELVIS: There is a fluid collection along the right pelvic sidewall that measures about 3 x 10 cm. T his extends into the right upper thigh. ABDOMINAL WALL: No masses. No hernias. BONES: No significant or acute findings. OTHER: No other significant finding. IMPRESSION: 1. There is a fluid collection in the right side of the abdomen and pelvis that extends into the top of the thigh on the right. Abscess versus hematoma. 2. There are some abnormal loops of bowel with what appears to be fecalization. This may relate to the prior surgery. Inflammation cannot be ruled out, especially in the right lower quadrant. TECHNICAL DOCUMENTATION: JOB ID: [id number] Quality ID # [id number]: Final reports with documentation of one or more dose reduction techniques (e.g., Au tomated exposure control, adjustment of the mA and/or kV according to patient size, use of iterative reconstruction technique) 2010 [employer]- All Rights Reserved Reading location - IP/workstation name: [email or web address]
[2018-11-18] MEDS: ACETAMINOPHEN 325 MG TABLET PO PRN (22:47)
[2018-11-19] MEDS: ACETAMINOPHEN 325 MG TABLET PO PRN ×2 (06:17→12:54)
--- NOTE | 2018-11-19 07:58 | EKG REPORT ---
SEVERITY:- BORDERLINE ECG - SINUS RHYTHM BORDERLINE PROLONGED QT INTERVAL : Confirmed by: Edelmira Taylor MD 19-Nov-2018 07:57:05
[2018-11-19] MEDS ORDERED: NORMAL SALINE 1000 ML 1,000 ML IV PRN (09:59)
--- NOTE | 2018-11-19 10:06 | ER Document Report ---
Doctor's Note Notes: 11/19/18 10:03 Rounds: Chart reviewed and patient interviewed. Patient is being evaluated for 3 conditions. First he had a craniotomy on October 23 for a brain tumor at [facility]. Secondly, the patient is known to have a pancreatic pseudocyst and there appears to be a collection of fluid in his abdomen that could be an abscess or hematoma. Third, patient is running fever, but he was not aware of it because he has been taking Tylenol for aches and pains. Lab results showed a white count of 13,200. Hemoglobin is 8.7. Slightly elevated LFTs. Lactate 2.2. Patient has been given antibiotics and is awaiting transfer to [facility]. Vital signs are all appear to be essentially normal except for his temperature of 100.4. Patient appears to be medically stable for transfer. Silvana Lazaro MD
[2018-11-19 16:45] VITALS: BP 106/71
== END 2018-11-19 16:45 | disposition short-term general hospital (02) ==
LOC: ER 15:52
DX: A41.9 Sepsis, unspecified organism (principal); K65.1 Peritoneal abscess; R50.9 Fever, unspecified; R19.7 Diarrhea, unspecified; K86.3 Pseudocyst of pancreas; D49.6 Neoplasm of unspecified behavior of brain; Z98.890 Other specified postprocedural states
CPT/HCPCS: 93005; 99291; 96361; 96365; 96367; 36415; 87040; 87086; 83690; 85025; 80053; 81001; 83605; 71046; 74177; 93010; J7030 ×2; J3370; J2543

== ENCOUNTER 2018-12-09 11:50 | Emergency (ER) | payer OTHER ==
[2018-12-09] MEDS ORDERED: NORMAL SALINE 1000 ML 1,000 ML IV ONE ×2 (12:14→17:10)
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
[2018-12-09] MEDS ORDERED: PIPERACILLIN/TAZOBACTAM 3.375 GM VIAL IV ONE (14:07)
[2018-12-09] MEDS ORDERED: VANCOMYCIN HCL INJ 1000 MG VIAL IV ONE (14:07)
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
[2018-12-09 14:33] LABS: ABSOLUTE BASOPHILS # (AUTO) 0.1 10^3/uL (0.0-0.2); ABSOLUTE LYMPHOCYTES (AUTO) 1.8 10^3/uL (0.5-4.7); ABSOLUTE MONOCYTES (AUTO) 2.1 10^3/uL (0.1-1.4); BASOPHILS % (AUTO) 0.4 % (0-2); EOSINOPHILS % (AUTO) 0.1 % (0-6); LYMPHOCYTES % (AUTO) 11.4 % (13-45); MEAN CORPUSCULAR HEMOGLOBIN 26.4 pg (27.0-33.4); MEAN CORPUSCULAR HGB CONC 33.4 g/dL (32.0-36.0); MEAN CORPUSCULAR VOLUME 79 fl (80-97); MONOCYTES % (AUTO) 12.9 % (3-13); PLATELET COUNT 540 10^3/uL (150-450); RED BLOOD COUNT 2.41 10^6/uL (4.35-5.55); SEGMENTED NEUTROPHILS % (AUTO) 75.2 % (42-78); TOTAL CELLS COUNTED % (AUTO) 100 %
[2018-12-09 14:35] LABS: HEMOGLOBIN 6.4 g/dL (13.5-17.0)
[2018-12-09 14:42] LABS: INTERNATIONAL RATION (INR) 1.29; PROTHROMBIN TIME 16.1 SEC (11.4-15.4)
[2018-12-09 14:44] LABS: ALANINE AMINOTRANSFERASE 215 U/L (21-72); ALBUMIN 2.5 g/dL (3.5-5.0); ALKALINE PHOSPHATASE 152 U/L (38-126); ANION GAP 8 (5-19); ASPARTATE AMINO TRANSFERASE 221 U/L (17-59); BILIRUBIN,DIRECT 0.3 mg/dL (0.0-0.4); BILIRUBIN,TOTAL 0.3 mg/dL (0.2-1.3); BLOOD UREA NITROGEN 10 mg/dL (7-20); CALCIUM 8.2 mg/dL (8.4-10.2); CARBON DIOXIDE 28 mmol/L (22-30); CHLORIDE 99 mmol/L (98-107); GLUCOSE 90 mg/dL (75-110); SODIUM 135.3 mmol/L (137-145); TOTAL PROTEIN 5.5 g/dL (6.3-8.2)
--- NOTE | 2018-12-09 14:59 | RADIOLOGY REPORT (SQ) ---
EXAM DESCRIPTION: CT ABD/PELVIS WITH IV ONLY COMPLETED DATE/TIME: 12/09/2018 2:39 pm REASON FOR STUDY: possible right groin abscess COMPARISON: CT abdomen pelvis 11/18/2018 TECHNIQUE: CT scan of the abdomen and pelvis performed using helical scanning technique with dynamic intravenous contrast injection. No oral contrast. Images reviewed with lung, soft tissue, and bone windows. Reconstructed coronal and sagittal MPR images reviewed. Delayed images for evaluation of the urinary system also acquired. All images stored on PACS. All CT scanners at this facility use dose modulation, iterative reconstruction, and/or weight based d osing when appropriate to reduce radiation dose to as low as reasonably achievable (ALARA). [facility]: Dose Right [facility]: CareDose [facility]: Dose Right [facility]: Teradose 4D [facility]: [employer]ed CONTRAST TYPE AND DOSE: contrast/concentration: Isovue 350.00 mg/ml; Total Contrast Delivered: 74.0 ml; Total Saline Delivered: 67.0 ml RENAL FUNCTION: Creatinine 0.7 RADIATION DOSE: CT Rad equipment meets quality standard of care and radiation dose reduction techniq ues were employed. CTDIvol: 4.8 - 5.7 mGy. DLP: 627 mGy-cm.. LIMITATIONS: None. FINDINGS: The patient has a pre-existing pigtail catheter along the dorsal aspect of the pancreatic head for drainage of peripancreatic abscess. Within the pigtail loop of the catheter, a 2 x 1.2 cm r esidual fluid collection is present on axial image 45. No significant fluid collection along the cat heter tract or upper around the pancreatic head neck or body. Multiple calcifications at the pancrea tic head from old calcific pancreatitis. There is tracking of fluid/air into the right posterior perirenal space/right retroperitoneum with a 6.5 x 3 by 5 cm fluid collection along the superior margin of the iliac crest extending into the kellie cus muscle. This is best shown on axial images 45-50. A tail of abscess tracks along the right iliopsoas muscle, along the right pelvic side wall and down into the right inguinal region. In the right inguinal region, a 4 x 1.5 by 3 cm abscess is present, communicating with the skin just medial to the right common femoral artery and vein. Adjacent small reactive lymph nodes are present in the right inguinal region. These findings were discussed with Dr. Garcia in the emergency room, 1440 hours 12/09/2018. LOWER CHEST: No significant findings. No nodules or infiltrates. LIVER: Normal size. No masses. No dilated ducts. SPLEEN: Normal size. No focal lesions. PANCREAS: The peripancreatic drainage catheter along the pancreatic head. Pancreatic head calcificat ions from old chronic pancreatitis. Neck body and tail are unremarkable. No upper abdominal peripan creatic fluid collections extending into the left upper quadrant. Other findings as above. GALLBLADDER: No identified stones by CT criteria. No inflammatory changes to suggest cholecystitis. ADRENAL GLANDS: No significant masses or asymmetry. RIGHT KIDNEY AND URETER: No solid masses. No significant calcifications. No hydronephrosis or hyd roureter. LEFT KIDNEY AND URETER: No solid masses. No significant calcifications. No hydronephrosis or hydr oureter. AORTA AND VESSELS: No aneurysm. No dissection. Renal arteries, SMA, celiac without stenosis. RETROPERITONEUM: As above BOWEL AND PERITONEAL CAVITY: No bowel obstruction. Radiopaque stool in the colon from oral contrast given 11/18/[address] abdomen pelvis APPENDIX: Not identified PELVIS: Thin rim of fluid tracks along the right pelvic sidewall from the retroperitoneal abscess in the iliac fossa, down to the right inguinal region. ABDOMINAL WALL: No masses. No hernias. BONES: No significant or acute findings. OTHER: Findings discussed with Dr. Garcia IMPRESSION: Pigtail catheter dorsal to the pancreatic head has drained the large peripancreatic absc ess seen on 11/18/2018. On today's study, there is an abscess along the right posterior pararenal space/iliac fossa extending down the right pelvic sidewall and into the inguinal region. Findings discussed with the emergency room attending physician. TECHNICAL DOCUMENTATION: JOB ID: [id number] Quality ID # [id number]: Final reports with documentation of one or more dose reduction techniques (e.g., Au tomated exposure control, adjustment of the mA and/or kV according to patient size, use of iterative reconstruction technique) 2010 [employer]- All Rights Reserved Reading location - IP/workstation name: [email or web address]
[2018-12-09 15:11] LABS: VENOUS BLOOD BASE EXCESS 3.7 mmol/L; VENOUS BLOOD HCO3 28.8 mmol/L (20-32); VENOUS BLOOD PCO2 46.8 mmHg (35-63); VENOUS BLOOD PH 7.41 (7.30-7.42)
[2018-12-09 16:02] LABS: APPEARANCE,URINE CLEAR; BILIRUBIN,URINE NEGATIVE (NEGATIVE); COLOR,URINE YELLOW; GLUCOSE, URINE NEGATIVE (NEGATIVE); KETONES,URINE NEGATIVE (NEGATIVE); LEUKOCYTE ESTERASE,URINE NEGATIVE (NEGATIVE); NITRITE,URINE NEGATIVE (NEGATIVE); PROTEIN,URINE NEGATIVE (NEGATIVE); URINE SPECIFIC GRAVITY 1.027; UROBILINOGEN,URINE NEGATIVE mg/dL (<2.0)
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
[2018-12-09] MEDS ORDERED: MORPHINE SULFATE 10 MG/ML INJ IV ONE (19:12)
[2018-12-09] MEDS ORDERED: PIPERACILLIN/TAZOBACTAM 3.375 GM VIAL IV SCH (19:45)
[2018-12-09 20:55] LABS: HEMATOCRIT 20.9 % (37.9-51.0); MEAN CORPUSCULAR HEMOGLOBIN 25.5 pg (27.0-33.4); MEAN CORPUSCULAR HGB CONC 32.2 g/dL (32.0-36.0); MEAN CORPUSCULAR VOLUME 79 fl (80-97); PLATELET COUNT 503 10^3/uL (150-450); RED BLOOD COUNT 2.63 10^6/uL (4.35-5.55); RED CELL DISTRIBUTION WIDTH 18.2 % (11.5-14.0); WHITE BLOOD COUNT 14.2 10^3/uL (4.0-10.5)
[2018-12-09 20:58] LABS: HEMOGLOBIN 6.7 g/dL (13.5-17.0)
[2018-12-09 21:45] VITALS: BP 108/64
== END 2018-12-09 21:55 | disposition short-term general hospital (02) ==
LOC: ER 11:50
DX: K68.11 Postprocedural retroperitoneal abscess (principal); D72.829 Elevated white blood cell count, unspecified; E10.9 Type 1 diabetes mellitus without complications; Z99.2 Dependence on renal dialysis; Z98.890 Other specified postprocedural states
CPT/HCPCS: 86900; 86901; 36415; 87040; 87086; 86850; 85025; 85610; 80053; 81001; 82803; 83605; 74177; J2270; J7030; J3370; J2543

== ENCOUNTER → 2019-02-03 | Outpatient (CLI) | payer OTHER ==
--- NOTE | 2019-02-03 12:39 | RADIOLOGY REPORT (SQ) ---
EXAM DESCRIPTION: CT ABD/PELVIS ORAL ONLY COMPLETED DATE/TIME: 02/03/2019 10:23 am REASON FOR STUDY: (K86.1)OTHER CHRONIC PANCREATITIS K86.1 OTHER CHRONIC PANCREATITIS K86.3 PSEUDOC YST OF PANCREAS K68.12 PSOAS MUSCLE ABSCESS COMPARISON: 11/18/2018 TECHNIQUE: CT scan of the abdomen and pelvis performed without intravenous contrast. Oral contrast was given. Images reviewed with lung, soft tissue, and bone windows. Reconstructed coronal and sagit schuyler MPR images reviewed. All images stored on PACS. All CT scanners at this facility use dose modulation, iterative reconstruction, and/or weight based d osing when appropriate to reduce radiation dose to as low as reasonably achievable (ALARA). [facility]: Dose Right [facility]: CareDose [facility]: Dose Right [facility]: Teradose 4D [facility]: HealthyOut RADIATION DOSE: CT Rad equipment meets quality standard of care and radiation dose reduction techniq ues were employed. CTDIvol: 4.8 mGy. DLP: 255 mGy-cm.mGy. LIMITATIONS: None. FINDINGS: LOWER CHEST: No significant findings. No nodules or infiltrates. NON-CONTRASTED LIVER, SPLEEN, ADRENALS: Evaluation limited by lack of IV contrast. No identified sign ificant masses. PANCREAS: There fairly dense calcifications in the head of the pancreas. No acute pancreatic or cristina pancreatic inflammatory changes are seen. GALLBLADDER: No identified stones by CT criteria. No inflammatory changes to suggest cholecystitis. RIGHT KIDNEY AND URETER: No suspicious masses. Assessment limited by lack of IV contrast. No signif icant calcifications. No hydronephrosis or hydroureter. LEFT KIDNEY AND URETER: No suspicious masses. Assessment limited by lack of IV contrast. No signifi cant calcifications. No hydronephrosis or hydroureter. AORTA AND RETROPERITONEUM: No aneurysm. No retroperitoneal masses or adenopathy. BOWEL AND PERITONEAL CAVITY: No obvious masses or inflammatory changes. No free fluid. APPENDIX: Not identified. PELVIS, BLADDER, AND ABDOMINAL WALL:No abnormal masses. No free fluid. Bladder normal. BONES: No significant findings. OTHER: What appears to be a biliary drainage catheter is present. IMPRESSION: Chronic pancreatitis with no evidence of acute inflammation. COMMENT: Quality ID # [id number]: Final reports with documentation of one or more dose reduction techniques (e.g., Automated exposure control, adjustment of the mA and/or kV according to patient size, use of iterative reconstruction technique) TECHNICAL DOCUMENTATION: JOB ID: [id number] [employer] All Rights Reserved Reading location - IP/workstation name: [email or web address]
== END ==
LOC: RAD 08:46
PROVIDERS: ATTEND Surgery Trauma Surgery
DX: K86.1 Other chronic pancreatitis (principal); K86.3 Pseudocyst of pancreas; K68.12 Psoas muscle abscess
CPT/HCPCS: 74176

== ENCOUNTER 2019-02-16 11:12 | Emergency (ER) | payer OTHER ==
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
--- NOTE | 2019-02-16 12:08 | RADIOLOGY REPORT (SQ) ---
EXAM DESCRIPTION: CT LUMBAR SPINE WITHOUT COMPLETED DATE/TIME: 02/16/2019 11:56 am REASON FOR STUDY: low back pain , tingling in both legs COMPARISON: None. TECHNIQUE: Axial images acquired through the lumbar spine without intravenous contrast. Images revi ewed with lung, soft tissue and bone windows. Reconstructed coronal and sagittal MPR images reviewed . All images stored on PACS. All CT scanners at this facility use dose modulation, iterative reconstruction, and/or weight based d osing when appropriate to reduce radiation dose to as low as reasonably achievable (ALARA). [facility]: Dose Right [facility]: CareDose [facility]: Dose Right [facility]: Teradose 4D [facility]: [employer] RADIATION DOSE: mGy. LIMITATIONS: None. FINDINGS: SEGMENTATION: Normal. No transitional anatomy. ALIGNMENT: Normal. VERTEBRAL BODIES: No fractures. No dislocation. No acute findings. DISCS: Degenerative disc disease most prominent L5-S1. Diffuse disc bulge with narrowing of the exit foramina. PEDICLES, TRANSVERSE PROCESSES: No fractures. No dislocation. No acute findings. FACETS, POSTERIOR ELEMENTS: No fractures. No dislocation. No spinal stenosis. HARDWARE: None in the spine. VISUALIZED RIBS: No fractures. SOFT TISSUES: Calcifications in the pancreas. OTHER: No other significant finding. IMPRESSION: Degenerative disc disease L5-S1 most prominent. No acute fractures. TECHNICAL DOCUMENTATION: JOB ID: [id number] Quality ID # [id number]: Final reports with documentation of one or more dose reduction techniques (e.g., Au tomated exposure control, adjustment of the mA and/or kV according to patient size, use of iterative reconstruction technique) 2010 [employer]- All Rights Reserved Reading location - IP/workstation name: [email or web address]
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
[2019-02-16] MEDS ORDERED: KETOROLAC TROMETHAMINE 60 MG/2 ML SDV IM ONE (14:01)
[2019-02-16 14:22] VITALS: BP 123/75
== END 2019-02-16 14:23 | disposition home or self-care (01) ==
LOC: ER 11:12
DX: M51.26 Other intervertebral disc displacement, lumbar region (principal); R20.0 Anesthesia of skin; F17.200 Nicotine dependence, unspecified, uncomplicated; E10.9 Type 1 diabetes mellitus without complications
CPT/HCPCS: 99284; 96372; 72131; J1885

== ENCOUNTER 2019-04-06 09:09 | Emergency (ER) | payer OTHER ==
[2019-04-06 09:51] VITALS: BP 115/10
[2019-04-06] MEDS ORDERED: AMIODARONE HCL INJ 150 MG/3 ML VIAL IV ONE (14:12)
[2019-04-06] MEDS ORDERED: CALCIUM GLUCONATE 1000 MG/10 ML INJ IV ONE (14:12)
[2019-04-06] MEDS ORDERED: EPINEPHRINE INJ 1 MG/10 ML DISP.SYRIN ONE (14:12)
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
[2019-04-08] MEDS ORDERED: TENECTEPLASE INJ 50 MG KIT IV ONE (07:21)
== END 2019-04-06 14:58 | disposition expired ==
LOC: ER 09:09
DX: I46.9 Cardiac arrest, cause unspecified (principal); E10.9 Type 1 diabetes mellitus without complications; Z85.841 Personal history of malignant neoplasm of brain; Z85.830 Personal history of malignant neoplasm of bone
CPT/HCPCS: J0610; J0171; J0282; 99291